=== PATIENT | female | born 1990 | race Caucasian/White ===

== ENCOUNTER 2020-03-12 09:10 | Inpatient (IN) | payer OTHER, SELFPAY ==
[2015-04-15 06:13] VITALS: BMI 28.3
[2020-03-12] VITALS (48 sets, daily range): BP systolic 80–136; BP diastolic 45–91; PULSE 64–114; RESP 16; TEMP 36–36.9; O2SAT 97–99; BMI 35.1
[2020-03-12 10:25] LABS: Absolute Lymphocyte Count 2.35 X10^3/uL (0.83-4.51); Absolute Neutrophil Count 9.9 X10^3/uL (2.0-7.7); Basophil# 0.03 X10^3/uL; Basophil% 0.2 % (0-1); Eosinophil# 0.12 X10^3/uL; Eosinophils% 0.9 % (0-5); Hematocrit 39.6 % (37-47); Hemoglobin 13.2 g/dL (12.0-15.0); Lymphocyte # 2.35 X10^3/ul (4.0); Lymphocyte % 17.5 % (19-41); Mean Corp Hgb Conc 33.3 g/dL (32-36); Mean Corpuscular Hgb 30.8 pg (27.0-32.0); Mean Corpuscular Volume 92.3 fL (81-99); Mean Platelet Vol. 10.4 fl (6.2-12.0); Monocyte# 0.94 X10^3/uL; NRBC Flagged by Analyzer 0 % (0-5); Neutrophil # 9.86 X10^3/uL (2.7-7.7); Neutrophil % 73.5 % (47-70); Platelet Count 230 K/mm3 (150-450); RBC Distribution Width CV 13.6 % (11.6-14.6); RBC Distribution Width SD 45.9 fl (35.1-43.9); Red Blood Count 4.29 M/mm3 (4.2-5.4); White Blood Count 13.4 K/mm3 (4.4-11.0)
[2020-03-12] MEDS: Lactated Ringers 1,000 ML 50 ML IV (11:00)
[2020-03-12] MEDS: Oxytocin 30 units/NS 500 ml 30 UNITS/500 ML IV.SOLN IV (11:00)
[2020-03-12] MEDS: Lactated Ringers 500 ML 999 ML IV (12:25)
--- NOTE | 2020-03-12 12:50 | HP.PCM_ITS ---
- Problem List (1) Late deceleration of heart rate Status: Acute (2) Term Status: Acute (3) History of HPV infection Status: Acute (4) Tobacco use complicating Status: Acute (5) Obesity affecting Status: Acute (6) Cystic fibrosis carrier Status: Acute History Date of Admission: 03/12/20 Final MARIANO: 03/17/20 Final MARIANO Source: US <20 weeks Gestational age: 39 Weeks and 2 Days History of this : This is a 29 year-old, G [2], P [1], at 39 weeks 2 days gestational age presented to triage with irregular contractions. Probable early labor and decision for and decision for augmentation of labor due to late decelerations of heart beat on monitor. History of vaginal delivery 01/24/2008 and baby given up for adoption, had cystic fibrosis. Current uplanned but accepted. Patient is carrier of cystic fibrosis but father of baby is negative carrier. Allergies No Known Allergies Allergy (Verified 04/15/15 06:18) Home Medications: Home Medications Magnesium Oxide [Magnesium] 1 tab PO DAILY 03/12/20 Prenatabs FA 1 tab PO DAILY 03/12/20 Unisom Sleep Aid 1 tab PO DAILY PRN 03/12/20 Smoking Status: Current every day smoker Alcohol: None Substance Use Type: Sleep Aides Number of Fetus(es): 1 NST - FHR Rate Baby A Baseline: 150 Variability:: Moderate Accelerations:: 15 x 15 Decelerations:: None, Late FHR Category:: Category I Uterine Activity:: Irregular contractions History Past Pregnancies: Past Pregnancies Delivery Date Name GA/ Weeks Outcome Route Wt Infant Sex Labor Length Anesthesia Delivery Location Provider FOB Labs: GC/CT negative GBS negative HBsAG negative HIV negative A positive RUbella immune RPR negative Expected Delivery Method: Spontaneous Vaginal Review of Systems Constitutional: Denies: Chills, Fever, Weight Change HEENT: Denies: Head Aches, Sinus Congestion, Sinus Drainage Cardiovascular: Denies: Chest Pain, Palpitations Respiratory: Denies: Cough, Shortness of breath at rest, Sputum production Gastrointestinal: Denies: Abdominal Pain, Nausea, Vomiting Genitourinary: Denies: Dysuria Musculoskeletal: Denies: Joint Pain, Joint Tenderness Skin: Denies: Rash, Wounds Neurological: Denies: Numbness, Tingling, Focal weakness Psychiatric: Denies: Anxiety, Depression, Homicidal Ideations, Suicidal Ideations Hematologic/ Lymphatic: Denies: Easy Bruising, Easy Bleeding Physical Exam Vitals: Vital Signs Temp Pulse BP Pulse Ox 97.5 F L 93 109/63 97 03/12/20 11:41 03/12/20 11:41 03/12/20 11:41 03/12/20 11:39 General: Alert, Oriented x3, No apparent distress HEENT: Atraumatic, Normocephalic. Negative for: Thyromegaly, Lymphadenopathy Cardiovascular: Regular rate, Regular Rhythm Lungs: Clear to auscultation Abdomen: Gravid Extremities:: No edema Neurological: Deep Tendon Reflexes 2+/4 and Symmetrical. Negative for: Clonus [place]: Normal external genitalia Estimated gestational size: Appropriate for gestational size Presentation: Cephalic Cervix Dilation (cm): 4 - AROM small amount of clear fluid with light green mucous. Possible meconium Station: -1 Effacement (%): 70 Assessment/Plan All Active Problems Late deceleration of heart rate (Acute) Term (Acute) History of HPV infection (Acute) Tobacco use complicating (Acute) Obesity affecting (Acute) Cystic fibrosis carrier (Acute) This is a 29 year-old, G [2], P [1], at 39 weeks 2 days gestational age. A:Early Labor Labor augmentation Category 1 FHT P: 1) Admit to labor and delivery. Routine labs 2) Pitocin augmentation of labor per policy 3) Negative COVID symptoms 4) Planning epidural for pain management 5) AROM 6) collaborative physician and notified of patient status. 7) Probable meconium, due to uncertainty will treat as MEC.
[2020-03-12] MEDS: fentaNYL-bupivacaine (epidural) 100 ML BAG EPIDURAL (13:36)
[2020-03-12] MEDS: Oxytocin 30 units/NS 500 ml 30 UNITS/500 ML IV.SOLN 334 UNITS IV (15:13)
--- NOTE | 2020-03-12 15:22 | PCM.OPRPT ---
Problem List (1) Late deceleration of heart rate Status: Acute (2) Term Status: Acute (3) History of HPV infection Status: Acute (4) Tobacco use complicating Status: Acute (5) Obesity affecting Status: Acute (6) Cystic fibrosis carrier Status: Acute Vaginal Delivery Maternal Presentation: - - early labor with late decelerations at term Method of Induction: Pitocin Amniotic Membrane Rupture Type: Artificial Amniotic Fluid Description: Lightly stained meconium Final MARIANO: 03/17/20 Gestational age: 39 Weeks and 2 Days Date of Procedure: 03/12/20 Pre-Operative Diagnosis: Early labor with late decelerations Post-Operative Diagnosis: Surgery/ Procedure Performed: Spontaneous Vaginal Delivery Type of Anesthesia: Epidural Description of Procedure: Progressed to complete with urge to push. Epidural for pain management. Respiratory and homeland security program specialist called to delivery for meconium stained fluid. of viable female over intact perineum at 1510. APGARS 9,9. Infant head delivered with body forthcoming. placed on maternal abdomen, mouth and nares suctioned for secretions. Pitocin started for active 3rd stage management. Cord clamped and cut after pulsations ceased. Placenta delivered with maternal effort intact, 3 vessel cord via pierce. Perineum inspected and intact. Vaginal sweep completed by me. Sponge and instrument count correct. Planning to breastfeed. Mom and baby stable. Family bonding well. notified of delivery. Presentation: Vertex Placental Delivery Description: Spontaneous Placenta Disposition: [facility] Cord Vessel Description: 3 Vessels Cord Entanglement: None Estimated Blood Loss: 250ml Infant A gender: Female (1 minute): 9 (5 minute): 9 Episiotomy Description: None Laceration: None Medications given after delivery: IV Pitocin Complications: None
[2020-03-12] MEDS: Senna/Docusate Sodium 1 Tablet PO (20:20)
[2020-03-12] MEDS: Ibuprofen 600 MG Tablet PO (20:20)
[2020-03-13 04:00] VITALS: BP 99/57; PULSE 60; RESP 16; TEMP 36.7
[2020-03-13] MEDS: Ibuprofen 600 MG Tablet PO ×3 (06:22→23:48)
[2020-03-13 06:30] LABS: Hematocrit 38.7 % (37-47); Hemoglobin 12.8 g/dL (12.0-15.0); Mean Corp Hgb Conc 33.1 g/dL (32-36); Mean Corpuscular Hgb 30.8 pg (27.0-32.0); Mean Platelet Vol. 10.4 fl (6.2-12.0); Platelet Count 217 K/mm3 (150-450); RBC Distribution Width CV 13.5 % (11.6-14.6); RBC Distribution Width SD 45.9 fl (35.1-43.9); Red Blood Count 4.16 M/mm3 (4.2-5.4); White Blood Count 13.5 K/mm3 (4.4-11.0)
[2020-03-13 08:30] VITALS: BP 95/58; PULSE 86; RESP 14; TEMP 36.4
[2020-03-13 11:50] VITALS: BP 104/61; PULSE 69; RESP 16; TEMP 36.2
--- NOTE | 2020-03-13 12:42 | PCM.PN.OB ---
Patient Problems: Active and Suspected Problems Late deceleration of heart rate (Acute) Term (Acute) History of HPV infection (Acute) Tobacco use complicating (Acute) Obesity affecting (Acute) Cystic fibrosis carrier (Acute) Subjective: Doing well per patient and nursing staff. Ambulating and taking PO without difficulty. Voiding and had BM. Pain controlled. Lochia normal. without complication. Planning D/C home today. - Physical Exam Vitals/I&O's: Vital Signs Temp Pulse Resp BP Pulse Ox 97.2 F L 69 16 104/61 97 03/13/20 11:50 03/13/20 11:50 03/13/20 11:50 03/13/20 11:50 03/12/20 20:20 Oxygen Delivery Method Room Air Weight: 192 lb Body Mass Index (BMI) 35.1 Intake and Output for Last 24 Hours 03/11/20 03/12/20 03/13/20 23:59 23:59 23:59 Intake Total 1999. / Output Total 825 / 825 Balance 1175.17 / 1175.17 General: Alert, Oriented x3, Cooperative HEENT: Atraumatic, Normocephalic Neck: Trachea Midline Lungs: Clear to auscultation, Normal air movement, No rhonchi, No wheeze Cardiovascular: Regular rate, Regular Rhythm, No murmurs Abdomen: Bowel Sounds Present, Soft - fundus firm 2 below U Extremities: No edema - angle's negative Neurological: Deep Tendon Reflexes 2+/4 and Symmetrical Psych/Mental Status: Normal Affect, Appropriate Laboratory Results 03/13/20 06:15: WBC 13.5 H, RBC 4.16 L, Hgb 12.8, Hct 38.7, MCV 93.0, MCH 30.8, MCHC 33.1, RDW Std Deviation 45.9 H, RDW Coeff of Noemy 13.5, Plt Count 217, MPV 10.4 Current Medications Acetaminophen (Tylenol) 1,000 mg PO Q8H PRN PRN PRN Reason: Pain Score 1-3 Bisacodyl (Dulcolax) 10 mg RECTAL UD PRN PRN Reason: If no BM Dibucaine (Dibucaine) 1 applic TOPICAL TID PRN PRN; Protocol PRN Reason: Discomfort Hydrocortisone (Hytone) 1 applic TOPICAL TID PRN PRN; Protocol PRN Reason: Discomfort Ibuprofen (Motrin) 600 mg PO Q6H PRN PRN PRN Reason: Pain Score 1-3 Last Admin: 03/13/20 06:22 Dose: 600 mg Documented by: Methylergonovine Maleate (Methergine) 0.2 mg IM X1 PRN PRN Reason: Excess bleeding/uterine atony Ondansetron HCl (Zofran) 4 mg IV Q4H PRN PRN PRN Reason: Nausea Multivit/Folic Acid/Iron (Prenatabs Fa) 1 tablet PO DAILY@1200 MARQUITA Senna/Docusate Sodium (Senokot-S, Ninfa-Colace) 1 - 2 tablet PO DAILY PRN PRN PRN Reason: Constipation Last Admin: 03/12/20 20:20 Dose: 1 tablet Documented by: Simethicone (Mylicon) 80 mg PO PCHS PRN PRN Reason: Indigestion/Stomach pain Sodium Chloride () 5 - 15 ml IV UD PRN PRN Reason: SALINE FLUSH Medical Necessity - Tobacco Use Smoking Status: Current every day smoker Assessment/Plan All Active Problems Late deceleration of heart rate (Acute) Term (Acute) History of HPV infection (Acute) Tobacco use complicating (Acute) Obesity affecting (Acute) Cystic fibrosis carrier (Acute) A:PPD#1 P) 1) ROutine and instructions 2) Follow up in 2 weeks virtual visit and 6 week virtual visit. 3) Discharge home
--- NOTE | 2020-03-13 13:16 | DCINST_ITS ---
Discharge Diet: No Restrictions Discharge Activity: Return to Normal Activity, May not drive while taking narcotic pain medications., May Shower, May Take a Tub Bath May resume sexual activity in: 4-6 weeks Weight Bearing Status: Full weight bearing Additional Activity Instructions:: Nothing in the vagina for 4-6 weeks. You may return to work/school in 6 weeks. Call your doctor if your incision/area has: Continuous Slow Oozing, Sudden Increased Bleeding, Increased Pain/ Swelling, Increased Redness, Foul Smelling Discharge Additional Instructions: If you experience any of the following, contact your healthcare provider. * Bleeding that soaks a pad every hour for 2 hours * Fever 100.4 or higher * Unrelieved incision or abdominal pain * Swelling, redness, discharge or bleeding from your incision or episiotomy site * Your incision begins to separate * Problems urinating (including inability to urinate or burning while urinating). * Visual changes * Severe headache * Flu-like symptoms * Pain or redness in one of both of your breasts * Pain, warmth, tenderness or swelling in your legs, especially the calf area * Frequent nausea and vomiting * Symptoms of depression or anxiety If you experience any of the following, call 911 or go to the nearest Emergency Room. * Chest pain * Problems breathing * Seizure activity * Partial or complete paralysis of a body part, slurred speech, weakness or drooping of the face, or a sudden inability to walk or hold your balance Allergies/Adverse Reactions: Allergies No Known Allergies Allergy (Verified 04/15/15 06:18) Medications to take at Discharge Magnesium Oxide [Magnesium] 1 tab PO DAILY 03/12/20 Prenatabs FA 1 tab PO DAILY 03/12/20 Unisom Sleep Aid 1 tab PO DAILY PRN 03/12/20 Ibuprofen [Motrin] 600 mg PO Q6H PRN PRN tablet 03/13/20 Vits [Prenatabs FA ] 1 tablet PO DAILY@1200 tablet 03/13/20 Please Follow Up With: Katerina Díaz CNM When: Call to make an appointment with your doctor in 6 weeks. If you had elevated Blood Pressure or 4th degree laceration you will need to be seen in 2 weeks. Primary Care Physician: Manny Alarcon DO [Primary Care Provider] - Test Results: Test results from this visit will be discussed in further detail at your follow- up appointment, if applicable.
[2020-03-13] MEDS: Prenatal Vits Tablet 1 TABLET PO (15:51)
[2020-03-13 16:30] VITALS: BP 122/72; PULSE 84; RESP 16; TEMP 36.2
[2020-03-13 20:04] VITALS: BP 112/51; PULSE 74; RESP 18; TEMP 36.2; O2SAT 98
[2020-03-14 02:00] VITALS: BP 102/65; PULSE 72; RESP 16; TEMP 36.6; O2SAT 98
[2020-03-14 09:10] VITALS: BP 125/84; PULSE 95; RESP 14; TEMP 36.2
[2020-03-14] MEDS: Prenatal Vits Tablet 1 TABLET PO (09:36)
[2020-03-14] MEDS: Acetaminophen 500 MG Tablet 1000 MG PO (09:36)
--- NOTE | 2020-03-14 10:51 | PCM.PN.OB ---
Patient Problems: Active and Suspected Problems Late deceleration of heart rate (Acute) Term (Acute) History of HPV infection (Acute) Tobacco use complicating (Acute) Obesity affecting (Acute) Cystic fibrosis carrier (Acute) Subjective: Doing well per patient and nursing staff. Ambulating and taking PO without difficulty. Voiding and passing flatus. Pain controlled. Bottle and breast feeding. Lochia normal. Planning D/C home today. - Physical Exam Vitals/I&O's: Vital Signs Temp Pulse Resp BP Pulse Ox 97.1 F L 95 14 125/84 H 98 03/14/20 09:10 03/14/20 09:10 03/14/20 09:10 03/14/20 09:10 03/14/20 02:00 Oxygen Delivery Method Room Air Weight: 192 lb Body Mass Index (BMI) 35.1 Intake and Output for Last 24 Hours 03/12/20 03/13/20 03/14/20 23:59 23:59 23:59 Intake Total 1999. / Output Total 825 / 825 Balance 1175.17 / 1175.17 General: Alert, Oriented x3, Cooperative HEENT: Atraumatic, Normocephalic Neck: Trachea Midline Lungs: Clear to auscultation, Normal air movement, No rhonchi, No wheeze Cardiovascular: Regular rate, Regular Rhythm, No murmurs Abdomen: Bowel Sounds Present, Soft - fundus firm under 2 Extremities: No edema Neurological: Deep Tendon Reflexes 2+/4 and Symmetrical Psych/Mental Status: Normal Affect, Appropriate Current Medications Acetaminophen (Tylenol) 1,000 mg PO Q8H PRN PRN PRN Reason: Pain Score 1-3 Last Admin: 03/14/20 09:36 Dose: 1,000 mg Documented by: Bisacodyl (Dulcolax) 10 mg RECTAL UD PRN PRN Reason: If no BM Dibucaine (Dibucaine) 1 applic TOPICAL TID PRN PRN; Protocol PRN Reason: Discomfort Hydrocortisone (Hytone) 1 applic TOPICAL TID PRN PRN; Protocol PRN Reason: Discomfort Ibuprofen (Motrin) 600 mg PO Q6H PRN PRN PRN Reason: Pain Score 1-3 Last Admin: 03/13/20 23:48 Dose: 600 mg Documented by: Methylergonovine Maleate (Methergine) 0.2 mg IM X1 PRN PRN Reason: Excess bleeding/uterine atony Ondansetron HCl (Zofran) 4 mg IV Q4H PRN PRN PRN Reason: Nausea Multivit/Folic Acid/Iron (Prenatabs Fa) 1 tablet PO DAILY@1200 MARQUITA Last Admin: 03/14/20 09:36 Dose: 1 tablet Documented by: Senna/Docusate Sodium (Senokot-S, Ninfa-Colace) 1 - 2 tablet PO DAILY PRN PRN PRN Reason: Constipation Last Admin: 03/12/20 20:20 Dose: 1 tablet Documented by: Simethicone (Mylicon) 80 mg PO PCHS PRN PRN Reason: Indigestion/Stomach pain Sodium Chloride () 5 - 15 ml IV UD PRN PRN Reason: SALINE FLUSH Medical Necessity - Tobacco Use Smoking Status: Current every day smoker Assessment/Plan All Active Problems Late deceleration of heart rate (Acute) Term (Acute) History of HPV infection (Acute) Tobacco use complicating (Acute) Obesity affecting (Acute) Cystic fibrosis carrier (Acute) A:PPD #2 P: 1) Routine instructions 2) D/C home today
== END 2020-03-14 10:50 | disposition home or self-care (01) | DRG 807 ==
LOC: WPOUT 09:14 → WP 09:14
PROVIDERS: Admitting Provider Advanced Practice Midwife; PCP Family Medicine; Referring Provider Advanced Practice Midwife; Visit Provider Advanced Practice Midwife
DX: O76 Abnormality in fetal heart rate and rhythm complicating labor and delivery (principal); Z37.0 Single live birth; F17.200 Nicotine dependence, unspecified, uncomplicated; O99.334 Smoking (tobacco) complicating childbirth; Z14.1 Cystic fibrosis carrier; E66.9 Obesity, unspecified; O99.214 Obesity complicating childbirth
CPT/HCPCS: 59025; 59050; 85025; 85027; 86850; 86900; 86901; 99218; J7120; G0378

== ENCOUNTER → 2022-07-19 | Outpatient (CLI) | payer OTHER, SELFPAY | END | disposition home or self-care (01) | PROVIDERS: PCP Family Medicine; Referring Provider Nurse Practitioner Family; Visit Provider Nurse Practitioner Family | DX: K52.9 Noninfective gastroenteritis and colitis, unspecified (principal) | CPT/HCPCS: 87177; 87209; 87493; 87506 ==

== ENCOUNTER 2022-12-03 02:31 | Emergency (ER) | payer OTHER, SELFPAY ==
[2022-12-03 02:32] VITALS: BP 168/101
[2022-12-03 02:33] VITALS: PULSE 92; RESP 16; TEMP 36.8; O2SAT 99; BMI 34.4
[2022-12-03] MEDS: Orphenadrine 60 MG/2 ML Ampul IM (04:14)
[2022-12-03] MEDS: Ketorolac 60 MG/2 ML Vial IM (04:14)
--- NOTE | 2022-12-03 04:30 | RAD_ITS ---
INDICATION: Injury/Pain. Lower back pain after chiropractic appointment. EXAMINATION/TECHNIQUE: X-RAY - XR Spine Lumbar 2 or 3 Views: AP, lateral and spot views COMPARISON: None. FINDINGS: VERTEBRAE: Preserved vertebral body heights. No fracture or suspicious osseous lesion demonstrated. No spondylolisthesis. Preservation of the normal lumbar lordosis. No significant facet arthropathy. DISCS: Disc spaces are maintained. INCLUDED ABDOMEN: Included bowel gas pattern is non-obstructive. IUD within midline pelvis. RAD/Lumbar Spine 2 or 3 Views IMPRESSION: Lumbar spine with no acute findings. Electronically Signed: Felix Saldaña MD at 5:16 EDT ,
--- NOTE | 2022-12-03 04:58 | EDS_ITS ---
HPI History of Present Illness Chief Complaint: Back Informant: patient Onset/Context/Timing Onset: Days Context: Sudden Onset Timing: Continuous Quality: Sharp (Stabbing) Location: Lumbar Current Severity: Severe Maximum Severity: Severe Worsened by: improves with Movement (Breathing) Relieved by: Remaining Still Associated Symptoms Associated Symptoms: Abdominal Pain; Negative for Numbness, Tingling, Radiation to Right Leg, Radiation to Left Leg, Fever, Dysuria, Unable to Ambulate, Unable to Transfer, Urinary Retention, Urinary Incontinence, Constipation or Fecal Incontinence Narrative Narrative: Patient presents with back pain that began 2 days ago. Patient states she got up from the floor and felt something pop in her back. Patient states it is mainly over her lower back. Patient states she saw her chiropractor who did an adjustment. Patient states he got better after this. Patient states that the pain became worse again this morning. Patient states the pain radiates into her abdomen. Patient states it is worse with movement and breathing. Patient states it is better when she remains still. Patient describes her pain as stabbing. Patient denies any radiation of her pain down her legs. Patient denies any bowel or bladder changes. Patient denies any saddle anesthesia. [facility] Home Medications Prenatabs FA 1 tab PO DAILY 03/12/20 [History Last Taken Unknown] Unisom Sleep Aid 1 tab PO DAILY PRN Sleep 03/12/20 [History Last Taken Unknown] magnesium oxide 500 mg capsule 1 tab PO DAILY back pain 03/12/20 [History Last Taken Unknown] ibuprofen 600 mg tablet 600 mg PO Q6H PRN PRN Pain Score 1-3 03/13/20 [Rx Last Taken Unknown] vits,calcium no.78-iron fumarate-folic acid 29 mg-1 mg tablet 1 tab PO DAILY@1200 03/13/20 [Rx Last Taken Unknown] cyclobenzaprine 10 mg tablet 10 mg PO QHS PRN PRN Muscle Spasm #10 TABLETS 12/03/22 [Rx Last Taken Unknown] naproxen 500 mg tablet 500 mg PO BID PRN #20 tabs 12/03/22 [Rx Last Taken Unknown] Allergy/AdvReac Type Severity Reaction Status Date / Time No Known Allergies Allergy Verified 12/03/22 02:35 Social History Smoking Status: Former smoker ROS ROS ED Constitutional Constitutional ED: Denies chills or fever(s) Eyes Eyes: Denies blurry vision or change in vision ENT ENT ED: Denies rhinorrhea or sore throat Cardiovascular Cardiovascular: Denies chest pain or palpitations Respiratory/Chest Respiratory/Chest: Reports dyspnea; Denies cough Gastrointestinal Gastrointestinal: Reports abdominal pain; Denies nausea or vomiting Genitourinary Genitourinary ED: Denies dysuria or hematuria Musculoskeletal Musculoskeletal: Reports back pain; Denies neck pain Integumentary Denies abscess or rash Neurologic Neurologic: Denies headache(s) or weakness Allergic/Immunologic Allergic/Immunologic ED: Denies mouth swelling or urticaria EXAM Physical Exam Const Vital Signs: 12/03/22 02:33 12/03/22 02:32 Temperature 98.2 F Temperature Source Oral Pulse Rate 92 Respiratory Rate 16 Blood Pressure 168/101 H Blood Pressure Mean 123 Pulse Ox 99 Oxygen Delivery Method Room Air Positive well nourished, well developed and obese General Appearance ED: well developed and NAD Nutritional Appearance: obese HEENT Reports moist mucous membranes GI normal to inspection, nondistended, normoactive bowel sounds, soft to palpation and non-tender Back/Spine Back/Spine Narrative: There is tenderness to palpation over the right lumbar paraspinal muscles. There is no midline tenderness. There is no bony crepitance or step-off. There is no edema or ecchymosis. Range of motion was limited in all motions of the lumbar spine secondary to pain. Strength is 5/5 bilaterally upper and lower extremities. There are no sensory deficits noted. Deep tendon reflexes are 2/4 bilaterally in the lower extremities. Straight leg raises were negative. Lumbar Spine / Lower Back: ROM limited and straight leg raise negative bilaterally Extremity normal to inspection General Extremety ED: Negative for edema or tenderness General Extremity: Negative for edema Neuro oriented x3 and no sensory deficits noted Sensorium / Orientation: alert Motor Exam: strength 5/5 throughout Deep Tendon Reflexes: Rt Patellar (L4): 2+, Lt Patellar (L4): 2+, Rt Ankle (S1): 2+ and Lt Ankle (S1): 2+ Deep Tendon Reflexes Back: Rt Patellar (L4): 2+, Lt Patellar (L4): 2+, Rt Ankle (S1): 2+ and Lt Ankle (S1): 2+ Psych mental status grossly normal MDM MDM MDM Narrative Medical decision making narrative: [place] diagnosis includes occult fracture, lumbosacral strain, and rib fracture. X-rays of the lumbar spine will be obtained to assess for occult fracture and lower rib fracture. Radiography X-Ray: LS SPine, Read by ED Physician, Read by Radiologist, Normal, No Fracture and Normal Bony Alignment Diagnostic Testing: Clinical Impression(s) from Imaging Studies Lumbar Spine X-Ray 12/03/22 04:30 IMPRESSION: Lumbar spine with no acute findings. Electronically Signed: Felix Saldaña MD at 5:16 EDT , X-rays of the lumbar spine were obtained. There are 3 views. On my independent interpretation, there is no acute fracture or spondylolisthesis. There are no degenerative joint changes noted. Treatment and Re-Evaluation Narrative: Patient was given Toradol and Norflex here. Patient is feeling better on reevaluation. Patient was advised of her findings. Patient was given prescriptions for Naprosyn and Flexeril. Patient was instructed to follow-up with her primary care physician in 5 to 7 days. Patient understood and was agreeable with the plan. All questions were answered. Discharge Plan Triage Chief Complaint: Back ED Provider: Harsha Lainez Dx/Rx/DC Orders Clinical Impression: Lumbosacral strain, Obesity (BMI 30.0-34.9) Instructions: ED Back Sprain/Strain Prescriptions: New cyclobenzaprine [cyclobenzaprine] 10 mg tablet 10 mg PO QHS PRN PRN (Reason: Muscle Spasm) Qty: 10 0RF naproxen 500 mg tablet 500 mg PO BID PRN Qty: 20 0RF No Action magnesium oxide 500 MG capsule 1 tab PO DAILY Prenatabs FA 1 tab PO DAILY Unisom Sleep Aid 1 tab PO DAILY PRN (Reason: Sleep) ibuprofen 600 MG tablet 600 mg PO Q6H PRN PRN (Reason: Pain Score 1-3) 0RF [id number] 1 TABLET tablet 1 tab PO DAILY@1200 0RF Primary Care Provider: Ann Nielsen Referrals: Ann Nielsen [Primary Care Provider] - 5-7 Days Disposition Disposition: Home, Self Care
== END 2022-12-03 06:29 | disposition home or self-care (01) ==
PROVIDERS: Emergency Provider Emergency Medicine; Visit Provider Emergency Medicine
DX: S39.012A Strain of muscle, fascia and tendon of lower back, initial encounter (principal); E66.9 Obesity, unspecified; Z87.891 Personal history of nicotine dependence; X58.XXXA Exposure to other specified factors, initial encounter
CPT/HCPCS: 72100; 96372; 99282